=== PATIENT | male | born 1990 | race African-American/Black ===

== ENCOUNTER 2024-09-21 04:30 | Emergency (ER) | payer SELFPAY ==
[2024-09-21] MEDS: Ketorolac 30 MG/ML SDV IM ONE (05:00)
== END 2024-09-21 05:06 | disposition home or self-care (01) ==
LOC: JD.ED 04:30
DX: K02.9 Dental caries, unspecified (principal); Z86.16 Personal history of COVID-19
CPT/HCPCS: 96372; 99282; J1885